=== PATIENT | male | born 1990 | race Caucasian/White ===

== ENCOUNTER 2021-08-30 11:11 | Emergency (ER) | payer MEDICAID ==
[~2021-08-30] VITALS: Ht 190.5 cm; Wt 96.2 kg
[2021-08-30 11:38] VITALS: BP 138/92
--- NOTE | 2021-08-30 11:50 | NUR ---
31 Y/O M BIB SELF C/O RLQ ABD PAIN 8 X TODAY. PT ALSO C/O TESTICULAR PAIN. PT DENIES TRAUMA. NKA PMH: DENIES
[2021-08-30] MEDS ORDERED: MORPHINE SULFATE 4 MG/ML SYR IVP ONE (12:35)
[2021-08-30] MEDS ORDERED: MORPHINE SULFATE 4 MG/ML SYR IM ONE (12:40)
--- NOTE | 2021-08-30 12:43 | NUR ---
LAB AT BEDSIDE
[2021-08-30 13:00] LABS: BASOPHILS % (AUTO) 0.5 % (0.0-2.0); EOSINOPHILS # (AUTO) 0.1 K/uL (0-0.4); EOSINOPHILS % (AUTO) 1.1 % (0.0-4.0); HEMATOCRIT 42.5 % (36-52); HEMOGLOBIN 14.1 g/dL (12.0-18.0); LYMPHOCYTES # (AUTO) 1.9 K/uL (2.0-11.5); LYMPHOCYTES % (AUTO) 27.6 % (20.5-51.1); MEAN CORPUSCULAR HEMOGLOBIN 27 pg (27-31); MEAN CORPUSCULAR HGB CONC 33 g/dL (33-37); MEAN CORPUSCULAR VOLUME 82.2 fL (80-94); MONOCYTES # (AUTO) 0.5 K/uL (0.8-1.0); MONOCYTES % (AUTO) 7.3 % (1.7-9.3); NEUTROPHILS # (AUTO) 4.3 K/uL (1.8-7.7); NEUTROPHILS % (AUTO) 63.5 % (42.2-75.2); PLATELET COUNT (AUTO) 168 K/uL (140-450); RED BLOOD CELL COUNT(AUTO) 5.17 MIL/uL (4.20-6.10); RED CELL DISTRIBUTION WIDTH 13.8 % (11.6-13.7); WHITE BLOOD COUNT (AUTO) 6.7 K/uL (4.8-10.8)
[2021-08-30 13:18] LABS: ALBUMIN 4.3 g/dL (3.4-5.0); CARBON DIOXIDE 29.7 mmol/L (21-32); CREATININE 0.9 mg/dL (0.6-1.3); POTASSIUM 4.7 mmol/L (3.5-5.1); TOTAL BILIRUBIN 0.6 mg/dL (0.0-1.0)
[2021-08-30] MEDS ORDERED: IBUP-2213 PO (13:50)
[2021-08-30] MEDS ORDERED: IBUPROFEN 600 MG TAB PO ONE (13:50)
[2021-08-30 14:05] VITALS: BP 137/68
--- NOTE | 2021-08-30 14:06 | NUR ---
Patient discharged with v/s stable. Written and verbal after care instructions given and explained. Patient alert, oriented and verbalized understanding of instructions. Ambulatory with steady gait. All questions addressed prior to discharge. ID band removed. Patient advised to follow up with PMD. Rx of IBUPROFEN given. Opportunity to ask questions provided and answered.
--- NOTE | 2021-08-30 14:07 | NUR ---
Chart checked and completed. The patient's care was reviewed and supervised by Mylene Palacios RN.
== END 2021-08-30 14:06 | disposition home or self-care (01) ==
LOC: MED 11:11
DX: R10.11 Right upper quadrant pain (principal); R10.31 Right lower quadrant pain
CPT/HCPCS: 36415; 80053; 83690; 85025; 96372; 99284; J2270